=== PATIENT | female | born 1960 | race Two or more races ===

== ENCOUNTER → 2025-05-29 | Outpatient (CLI) | payer MEDICARE, SELFPAY ==
--- NOTE | 2025-05-29 11:00 | XR_ITS ---
Examination: Screening digital mammography, bilateral Computer aided detection 3-D breast Tomosynthesis, bilateral Date and time of exam: May 29, 2020 5:11 AM Compared to mammograms dating to July 20, 2009 Indication: Screening Technique: Nonmagnified MLO, CC views of the breasts to been obtained, reconstructed from 3-D Tomosynthesis images. R2 computer aided detection program utilized for evaluation of suspicious masses and/or abnormal calcifications. 3-D Tomosynthesis images obtained. Findings: Scattered areas of fibroid rather density. Benign calcifications. No interval suspicious masses Impression: BI-RADS category II: Benign Findings. Recommend 1 year follow-up mammogram.
== END | disposition home or self-care (01) ==
PROVIDERS: PCP Specialist; Referring Provider Specialist; Visit Provider Specialist
DX: Z12.31 Encounter for screening mammogram for malignant neoplasm of breast (principal); R92.323 Mammographic fibroglandular density, bilateral breasts; R92.1 Mammographic calcification found on diagnostic imaging of breast
CPT/HCPCS: 77063; 77067

== ENCOUNTER 2025-07-14 09:10 | Outpatient (AMB) | payer MEDICARE, MEDICAID, SELFPAY ==
--- NOTE | 2025-07-14 09:25 | PD.ORTHCLVIS ---
Vital signs 07/14/25 09:28 Height 1.55 m Height Method Stated Weight 59.988 kg Weight Measurement Method Standing Scale BMI 25.0 BP 123/81 Blood Pressure Source Automatic Cuff Blood Pressure Location Left Upper Arm Position Sitting Respiration 19 Pulse 75 Pulse Source Monitor Temp 98.0 F Temp Source Temporal Artery Scan Pulse Oximetry (%) 96 Oxygen Delivery Method Room Air Med/Allergies Allergies & Medications Allergies No Known Allergies Allergy (Verified 07/14/25 09:28) Medication Reconciliation diclofenac potassium 50 mg tablet 50 mg PO QDAY 07/14/25 [History Confirmed 07/14/25] ibuprofen 800 mg tablet 800 mg PO Q8H 07/14/25 [History Confirmed 07/14/25] lisinopril 5 mg tablet 5 mg PO QDAY 07/14/25 [History Confirmed 07/14/25] losartan 25 mg tablet 25 mg PO QDAY 07/14/25 [History Confirmed 07/14/25] metformin 1,000 mg tablet 1,000 mg PO QDAY 07/14/25 [History Confirmed 07/14/25] omeprazole 20 mg capsule,delayed release 20 mg PO QDAY 07/14/25 [History Confirmed 07/14/25] prednisone 20 mg tablet 20 mg PO QDAY 07/14/25 [History Confirmed 07/14/25] sitagliptin phosphate 50 mg tablet (Januvia) 50 mg PO QDAY 07/14/25 [History Confirmed 07/14/25] sitagliptin phosphate 50 mg-metformin 1,000 mg tablet (Janumet) 1 tab PO BID 07/14/25 [History Confirmed 07/14/25] Exam Exam Patient is in no acute distress and is cooperative with the examination today. Breathing is nonlabored. In no respiratory distress. Bilateral extremities were evaluated and demonstrates sensation intact to light touch. Palpable pedal pulses are present. No significant edema is present. Bilateral hips were examined. The patient has no pain with log roll of the hips. Internal rotation to 30 degrees and external rotation to 30 degrees is painless. Negative FADIR. The left knee was examined. The left knee is in varus alignment. Range of motion from 0-115 degrees. Knee is stable to varus and valgus as well as AP translation with <5mm. Patient has a negative McMurrays. There is no pain with patellofemoral compression and no crepitus noted. The knee is tender to palpation medially. The right knee was also examined. The right knee is in varus alignment. Range of motion from 0-120 degrees. Knee is stable to varus and valgus as well as AP translation with <5mm. Patient has a negative McMurrays. There is no pain with patellofemoral compression and no crepitus noted. The knee is tender to palpation medially. Assessment and Plan Problem List (1) Arthritis of knee, right: Status: Acute Plan ASSESSMENT AND PLAN 1. Right knee pain: The x-ray report indicates severe arthritis in the right knee, described as [id number]. Various treatments have been tried, including 9 to 12 injections, physical therapy, and anti-inflammatory medications, with minimal relief. X-rays of both knees will be ordered to assess the extent of the condition. If the A1c is <8, surgical options can be considered. She is advised to call with her recent lab results to discuss further steps. X-rays of both knees will be ordered to assess the extent of the condition. If the A1c is <8, surgical options can be considered. She is advised to call with her recent lab results to discuss further steps. 2. Diabetes mellitus: Her A1c was last recorded as 13.7 on 03/28/2025, indicating poorly controlled diabetes. She is currently taking Januvia and metformin. She recently had new blood work done and is advised to call with the results once available. She is advised to call with the results once available. If the A1c is <8, surgical options for her knee pain can be considered. Advanced Care Planning Discussion Advance care planning discussed with:: patient Office Procedures GNS Level of Care Nursing/Assessment Patient Status: Initial/New Patient Nursing Assessment/Reassesment: Medication Reconciliation, Update PMH in EMR and Vital Signs Coordination of Care: Complex Care and Chronic Disease 1-5, Education Complex Pt/Fam, Consent,records obtained, informed consent, 1 Ins Authorization, Lab and Imaging orders, Results/Orders obtained and Staff clarify orders Special Needs: Language special needs New Patient Charge New Patient Point Assignment: 1124 New Patient Point Charge: PURSE SEINER Level 4 ([id number]) MA Intake Visit Data Collection New Patient or Established: New Patient (never been to [facility]) Reason for Visit:: RIGHT KNEE OA Seen by Clinical Staff ONLY (RN/MA): No Training Developer Required: Yes PCP or OBGYN visit in last 3 months: Yes Hx Now: No Do You Feel Safe at Home: Yes Authorities Contacted: N/A Questionairres Past Medical History Past Medical History Have you ever been diagnosed with any of the following: Respiratory Problems Smoking: No Smoking Cessation Counseling: No Smoking Exposure: No Subjective Visit Visit for: new patient and knee (RIGHT ) Immunization / Flu Flu Vaccine in the Last 12 Months: Yes Flu Vaccine Exclusion Criteria: Already Received History of Present Illness Chief complaint: RIGHT KNEE OA PAIN Date of injury / onset of symptoms: 5 YEARS Patient is a 65-year-old female with diabetes and bilateral knee pain. The right is worse than the left. This been ongoing for several years. She has had over 10 injections, anti-inflammatories, and physical therapy. Pain is persistent and is affecting her quality life. The pain is diffuse. HISTORY OF PRESENT ILLNESS I, John Jackson, have obtained verbal consent from the patient, to be recorded during this encounter which may include, but not limited to, medical history, examination, treatment plans, and relevant health information.? Patient was informed that recording will be read and reviewed by myself before inclusion in the medical chart. The patient presents today with right knee pain that she has had for about 5 years. She is accompanied by a epic application coordinator. She has an A1c of 13.7, last checked on 03/28/2025. She states she had imaging completed at [facility], both standing and lying down. Despite receiving between 9 to 12 injections, she reports no significant relief. Physical therapy sessions have also failed to alleviate her symptoms. Anti-inflammatory medications provide only minimal relief. She reports persistent discomfort in her right knee, which has been ongoing for several years. Additionally, her left knee is beginning to cause her pain. She attributes her uncontrolled diabetes to a lack of education regarding dietary habits and overall health maintenance. She recently underwent blood work but is uncertain about her current A1c level. Her current medication regimen includes Januvia and metformin. Personal History Occupation: RETIRED Pain Pain level (0-10): 7 Pain duration: ALL DAY Pain location: inside (medial) and outside (lateral) Pain quality: sharp, aching, burning and other (specify) (SWELLING) Pain timing: increases with activity Associated signs & symptoms: numbness, weakness and stiffness Ambulatory data Ambulatory device: none Treatments Number of previous injections: 9 Improvement with previous injections: No Number of Physical Therapy sessions: 4 Improvement with PT: No Improvement with NSAIDS: no Review of Systems Review of Systems: All systems negative unless otherwise noted in HPI.
[2025-07-14 09:28] VITALS: BP 123/81; PULSE 75; RESP 19; TEMP 36.7; O2SAT 96; BMI 25.0
--- NOTE | 2025-07-14 09:37 | XR_ITS ---
EXAMINATION: Bilateral knees 2 views Right lateral knee left lateral knee 2 views Bilateral Axuni single view TECHNIQUE: Bilateral AP knees standing single view, bilateral PA knees standing single view flexion Standing right lateral knee left lateral knee 2 views Bilateral axial knee single view total 5 views Date and time: July 14, 2025, 0944 hours INDICATIONS: Patient fell 5 years ago with persistent bilateral knee pain. FINDINGS: Severe osteopenia Advanced narrowing [id number] medial joint space right knee, moderate osteoarthritis right patellofemoral joint Advanced narrowing medial joint space left knee, [id number], mild to moderate osteoarthritis patellofemoral joint No fractures or patellar dislocations IMPRESSION: Advanced narrowing [id number] medial joint space right knee Advanced narrowing [id number] medial joint space left knee
== END 2025-07-14 10:17 | disposition home or self-care (01) ==
PROVIDERS: PCP Family Medicine; Referring Provider Family Medicine; Supervising Provider Orthopaedic Surgery Adult Reconstructive Orthopaedic Surgery; Visit Provider Orthopaedic Surgery Adult Reconstructive Orthopaedic Surgery
DX: M25.561 Pain in right knee (principal); M25.562 Pain in left knee; M17.11 Unilateral primary osteoarthritis, right knee; E11.9 Type 2 diabetes mellitus without complications; Z79.84 Long term (current) use of oral hypoglycemic drugs
CPT/HCPCS: 73564; 99204; G0463